=== PATIENT | female | born 1950 | race Caucasian/White ===

== ENCOUNTER → 2017-11-15 | Outpatient (CLI) | payer MEDICARE, BC ==
[~2017-11-15] MED LIST: AMBIEN 5MG TABLE5 MG PO; ANTIVERT 25MG25 MG PO; CALCIUM 1200 W/1 SGL PO; FERROUS SULFAT325 M2 PO; FOLIC ACID 40400 MCG PO; FOSAMAX70 MG PO; IBUPROFEN200 M2 PO; LISINOPRIL10 MG PO; LORTAB 5/500 501 TAB PO; TYLENOL 500MG500 MG PO; VITAMIN C PO; WOMEN'S ONE DAI1 TAB PO
== END ==
LOC: COL.RAD 07:00
DX: M47.812 Spondylosis without myelopathy or radiculopathy, cervical region (principal); M47.814 Spondylosis without myelopathy or radiculopathy, thoracic region; K44.9 Diaphragmatic hernia without obstruction or gangrene; M40.204 Unspecified kyphosis, thoracic region; M85.80 Other specified disorders of bone density and structure, unspecified site